=== PATIENT | female | born 1985 | race Caucasian/White ===

== ENCOUNTER 2017-06-24 02:06 | Emergency (ER) | payer BC ==
[~2017-06-24] VITALS: Ht 170.2 cm; Wt 131.1 kg
--- NOTE | 2017-06-24 02:09 | ED.ADGEN ---
Adult General Chief Complaint Chief Complaint " For last three days been sick.. a million diarrhea's.. Nausea and Vomiting... Epigastric pain..." HPI HPI Patient is a 31 year old female who presents with above hx and complaints Abd. pain, Nausea and Vomiting and Diarrhea. Pt. Denies bad food, travel, or specific ill contacts other than step son. . Her step son however was well enough to play basket ball game today. Pt. is also exposed to school child at work. No exposure to reptiles or other animals. Pt. did eat turkey dinner at noon. Pt. report too many watery diarrhea's to count. No hx of colitis with her or family members. Pt. denies immunosuppression. Pt. normally follows with Dr. Morton. Review of Systems Review of Systems Constitutional: Subjective fever or chills [] Eyes: Denies change in visual acuity, redness, or eye pain [] HENT: Denies nasal congestion or sore throat [] Respiratory: Denies cough or shortness of breath [] Cardiovascular: No additional information not addressed in HPI [] GI: Generalize abdominal pain, nausea, vomiting, and diarrhea [] : Denies dysuria or hematuria [] Musculoskeletal: Denies back pain or joint pain [] Integument: Denies rash or skin lesions [] Neurologic: Denies headache, focal weakness or sensory changes [] Endocrine: Denies polyuria or polydipsia [] All other systems were reviewed and found to be within normal limits, except as documented in this note. Family History Family History Step son - GI complaints Current Medications Current Medications Current Medications Medications (Trade) Dose Ordered Sig/Cyrus Start Time Stop Time Status Last Admin Dose Admin Famotidine (Pepcid Vial) 20 mg 1X ONCE 06/24/17 03:00 06/24/17 03:01 DC 06/24/17 02:49 20 MG Lactated Ringer's 1,000 ml @ 1,000 mls/hr Q1H 06/24/17 03:00 06/24/17 03:00 DC 06/24/17 02:50 1,000 MLS/HR Morphine Sulfate (Morphine 4mg Syringe) 10 mg PRN Q15MIN PRN 06/24/17 02:30 06/24/17 05:16 DC 06/24/17 04:49 10 MG Ondansetron HCl (Zofran) 8 mg 1X ONCE 06/24/17 05:00 06/24/17 05:01 DC 06/24/17 04:48 8 MG Sodium Chloride 1,000 ml @ 1,000 mls/hr Q1H 06/24/17 03:00 06/24/17 03:59 DC 06/24/17 03:00 1,000 MLS/HR See USP meds Allergies Allergies Allergies Coded Allergies Type Severity Reaction Last Updated Verified No Known Drug Allergies 06/24/17 No Physical Exam Physical Exam Constitutional: Well developed, well nourished, no acute distress, non-toxic appearance. [] HENT: Normocephalic, atraumatic, bilateral external ears normal, , no oral exudates Dry., nose normal. [] Eyes: PERRLA, EOMI, conjunctiva normal, no discharge. [] Neck: Normal range of motion, no tenderness, supple, no stridor. [] Cardiovascular:Heart rate regular rhythm, no murmur [] Lungs & Thorax: Bilateral breath sounds clear to auscultation [] Abdomen: Bowel sounds hyperactive , soft,generalized tenderness, no masses, no pulsatile masses. [] Skin: Warm, dry, no erythema, no rash. [] Back: No tenderness, no CVA tenderness. [] Extremities: No tenderness, no cyanosis, no clubbing, ROM intact, no edema. [] No psoas or heel tap. Neurologic: Alert and oriented X 3, normal motor function, normal sensory function, no focal deficits noted. [] Psychologic: Affect normal, judgement normal, mood normal. [] Current Patient Data Vital Signs Vital Signs Date Time Temp Pulse Resp B/P (MAP) Pulse Ox O2 Delivery O2 Flow Rate FiO2 06/24/17 03:45 58 20 143/83 (103) 96 Room Air 06/24/17 02:19 97.9 Lab Results Laboratory Tests Test 06/24/17 02:19 White Blood Count 9.9 x10^3/uL (4.0-11.0) Red Blood Count 4.43 x10^6/uL (3.50-5.40) Hemoglobin 13.9 g/dL (12.0-15.5) Hematocrit 40.2 % (36.0-47.0) Mean Corpuscular Volume 91 fL (79-100) Mean Corpuscular Hemoglobin 31 pg (25-35) Mean Corpuscular Hemoglobin Concent 35 g/dL (31-37) Red Cell Distribution Width 13.2 % (11.5-14.5) Platelet Count 219 x10^3/uL (140-400) Neutrophils (%) (Auto) 72 % (31-73) Lymphocytes (%) (Auto) 21 % (24-48) L Monocytes (%) (Auto) 6 % (0-9) Eosinophils (%) (Auto) 1 % (0-3) Basophils (%) (Auto) 0 % (0-3) Neutrophils # (Auto) 7.2 x10^3uL (1.8-7.7) Lymphocytes # (Auto) 2.1 x10^3/uL (1.0-4.8) Monocytes # (Auto) 0.6 x10^3/uL (0.0-1.1) Eosinophils # (Auto) 0.1 x10^3/uL (0.0-0.7) Basophils # (Auto) 0.0 x10^3/uL (0.0-0.2) Urine Collection Type Void Urine Color Yellow Urine Clarity Cloudy Urine pH 5.5 Urine Specific [place] >=1.030 Urine Protein 30 mg/dl (NEG-TRACE) Urine Glucose (UA) Neg mg/dL (NEG) Urine Ketones (Stick) Neg mg/dL (NEG) Urine Blood Mod (NEG) Urine Nitrite Neg (NEG) Urine Bilirubin Neg (NEG) Urine Urobilinogen Dipstick 0.2 mg/dL (0.2 mg/dL) Urine Leukocyte Esterase Neg (NEG) Urine RBC >40 /HPF (0-2) Urine WBC Occ /HPF (0-4) Urine Squamous Epithelial Cells Few /LPF Urine Bacteria Few /HPF (0-FEW) Urine Mucus Mod /LPF Sodium Level 141 mmol/L (136-145) Potassium Level 3.5 mmol/L (3.5-5.1) Chloride Level 106 mmol/L (98-107) Carbon Dioxide Level 23 mmol/L (21-32) Anion Gap 12 (6-14) Blood Urea Nitrogen 15 mg/dL (7-20) Creatinine 0.7 mg/dL (0.6-1.0) Estimated GFR (Cockcroft-Gault) 98.9 BUN/Creatinine Ratio 21 (6-20) H Glucose Level 103 mg/dL (70-99) H Calcium Level 9.0 mg/dL (8.5-10.1) Total Bilirubin 0.3 mg/dL (0.2-1.0) Aspartate Amino Transferase (AST) 23 U/L (15-37) Alanine Aminotransferase (ALT) 31 U/L (14-59) Alkaline Phosphatase 55 U/L (46-116) Total Protein 7.8 g/dL (6.4-8.2) Albumin 3.6 g/dL (3.4-5.0) Albumin/Globulin Ratio 0.9 (1.0-1.7) L Lipase 147 U/L (73-393) Serum Test, Qualitative Negative (NEG) EKG EKG [] Radiology/Procedures Radiology/Procedures [] Course & Med Decision Making Course & Med Decision Making Pertinent Labs and Imaging studies reviewed. (See chart for details). Clear fluids diet only. Follow up stool cultures. No milk products or solids x 48 hrs. must allow bowel rest. Tylenol and Ibuprofen for pain and fever. Zofran for nausea and vomiting. [] Final Impression Final Impression 1. Gastroenteritis[] 2. Dehydration Problems: Dragon Disclaimer Dragon Disclaimer This electronic medical record was generated, in whole or in part, using a voice recognition dictation system. KEVIN SUBRAMANIAN MD Jun 24, 2017 02:09
[2017-06-24] MEDS ORDERED: ONDANSETRON PF 4 MG/2 ML VIAL. ONE ×2 (02:35→02:44)
[2017-06-24] MEDS ORDERED: FAMOTIDINE 20 MG/2 ML VIAL ONE (02:45)
[2017-06-24] MEDS ORDERED: MORPHINE SULFATE 5 MG/ML SYRINGE. ONE (02:45)
[2017-06-24] MEDS ORDERED: ONDA8TAB12 PO (02:47)
[2017-06-24] MEDS ORDERED: FAMOTIDINE 20 MG/2 ML VIAL IVP ONE (03:00)
[2017-06-24] MEDS ORDERED: IV RINGERS SOLUTION,LACTATED 1,000 ML IV SCH (03:00)
[2017-06-24] MEDS ORDERED: IV NORMAL SALINE 1,000ML 1,000 ML IV SCH (03:00)
[2017-06-24] MEDS ORDERED: ONDANSETRON PF 4 MG/2 ML VIAL. IV ONE ×2 (03:00→05:00)
[2017-06-24 03:03] LABS: BASO % 0 % (0-3); EOS # 0.1 x10^3/uL (0.0-0.7); EOS % 1 % (0-3); HEMATOCRIT 40.2 % (36.0-47.0); HEMOGLOBIN 13.9 g/dL (12.0-15.5); LYMPH # 2.1 x10^3/uL (1.0-4.8); LYMPH % 21 % (24-48); MEAN CORPUSCULAR HEMOGLOBIN 31 pg (25-35); MEAN CORPUSCULAR HGB CONC 35 g/dL (31-37); MEAN CORPUSCULAR VOLUME 91 fL (79-100); MONO # 0.6 x10^3/uL (0.0-1.1); MONO % 6 % (0-9); NEUT # 7.2 x10^3uL (1.8-7.7); NEUT % 72 % (31-73); PLATELET COUNT 219 x10^3/uL (140-400); RED BLOOD COUNT 4.43 x10^6/uL (3.50-5.40); RED CELL DISTRIBUTION WIDTH 13.2 % (11.5-14.5); WHITE BLOOD COUNT 9.9 x10^3/uL (4.0-11.0)
[2017-06-24 03:09] LABS: ALBUMIN 3.6 g/dL (3.4-5.0); ALBUMIN/GLOBULIN RATIO 0.9 (1.0-1.7); CREATININE 0.7 mg/dL (0.6-1.0); GFR 98.9; POTASSIUM 3.5 mmol/L (3.5-5.1); TOTAL BILIRUBIN 0.3 mg/dL (0.2-1.0); TOTAL PROTEIN 7.8 g/dL (6.4-8.2)
[2017-06-24 03:24] LABS: BILIRUBIN,URINE NEG (NEG); CLARITY,URINE CLOUDY; COLOR,URINE YELLOW; GLUCOSE,URINE NEG (NEG); NITRITE,URINE NEG (NEG); UROBILINOGEN,URINE 0.2 mg/dL (0.2 mg/dL)
[2017-06-24 03:25] LABS: BACTERIA,URINE FEW /HPF (0-FEW); PREG TEST PT QUAL NEGATIVE (NEG); RBC,URINE >40 /HPF (0-2); SQUAMOUS EPITHELIAL CELL,UR FEW /LPF; WBC,URINE OCC /HPF (0-4)
[2017-06-24] MEDS: MORPHINE SULFATE 4 MG/ML DISP.SYRIN. SQ PRN ×2 (03:35→04:49)
[2017-06-24 03:45] VITALS: BP 143/83
== END 2017-06-24 05:00 | disposition home or self-care (01) ==
LOC: ER 02:06
DX: K52.9 Noninfective gastroenteritis and colitis, unspecified (principal); E86.0 Dehydration
CPT/HCPCS: 36415; 80053; 81001; 81025; 83690; 84703; 85025; 87324; 96361; 96372; 96374; 96375; 96376; 99285; J2270; J2405; J7120; S0028; J7030

== ENCOUNTER 2019-10-23 16:17 | Emergency (ER) | payer BC, OTHER ==
[~2019-10-23] VITALS: Ht 172.7 cm; Wt 125.0 kg
[~2019-10-23 16:17] MED LIST: ONDA8TAB12 PO
[2019-10-23 16:48] VITALS: BP 131/84
[2019-10-23] MEDS ORDERED: FAMOTIDINE 20 MG/2 ML VIAL IVP ONE (17:00)
[2019-10-23] MEDS ORDERED: ONDANSETRON PF 4 MG/2 ML VIAL. IVP ONE (17:00)
[2019-10-23] MEDS ORDERED: LIDO:MAALOX 1:1 20 ML SINGLE DOSE. PO ONE (17:00)
[2019-10-23 17:10] LABS: CALCIUM 9.6 mg/dL (8.5-10.1); CREATININE 0.7 mg/dL (0.6-1.0); POTASSIUM 3.6 mmol/L (3.5-5.1)
[2019-10-23 17:16] LABS: ALBUMIN 3.7 g/dL (3.4-5.0); ALBUMIN/GLOBULIN RATIO 0.9 (1.0-1.7); TOTAL BILIRUBIN 0.4 mg/dL (0.2-1.0); TOTAL PROTEIN 7.6 g/dL (6.4-8.2)
[2019-10-23 17:20] LABS: BASO % 0 % (0-3); EOS # 0.2 x10^3/uL (0.0-0.7); EOS % 1 % (0-3); HEMATOCRIT 40.7 % (36.0-47.0); HEMOGLOBIN 13.6 g/dL (12.0-15.5); LYMPH # 2.1 x10^3/uL (1.0-4.8); LYMPH % 18 % (24-48); MEAN CORPUSCULAR HEMOGLOBIN 31 pg (25-35); MEAN CORPUSCULAR HGB CONC 34 g/dL (31-37); MEAN CORPUSCULAR VOLUME 92 fL (79-100); MONO # 0.6 x10^3/uL (0.0-1.1); MONO % 5 % (0-9); NEUT # 8.8 x10^3uL (1.8-7.7); NEUT % 75 % (31-73); PLATELET COUNT 239 x10^3/uL (140-400); RED BLOOD COUNT 4.41 x10^6/uL (3.50-5.40); RED CELL DISTRIBUTION WIDTH 13.6 % (11.5-14.5); WHITE BLOOD COUNT 11.7 x10^3/uL (4.0-11.0)
[2019-10-23] MEDS ORDERED: KETOROLAC 15 MG/ML VIAL. ONE (17:24)
[2019-10-23] MEDS ORDERED: IV NORMAL SALINE 1,000ML 1,000 ML IV ONE (17:30)
[2019-10-23] MEDS ORDERED: HYOS0.1265 SL (17:41)
[2019-10-23] MEDS ORDERED: FAMO-63 PO (17:41)
--- NOTE | 2019-10-23 17:41 | PHYS DOC ---
Past History Past Medical History: Hypertension, Migraines Past Surgical History: Smoking: Non-smoker Alcohol Use: Occasionally Drug Use: None Adult General Chief Complaint Chief Complaint: ABDOMINAL PAIN HPI HPI 34-year-old female presents with epigastric abdominal pain which started at 1400 today. Denies associated nausea or vomiting. Denies fever or chills. Patient does have history of recent for which she saw her doctor today. Patient does have a very small area of dehiscence without signs of redness or discharge. Denies diarrhea. Denies known sick contacts. Review of Systems Review of Systems Constitutional: Denies fever or chills Eyes: Denies redness or eye pain HENT: Denies nasal congestion or sore throat Respiratory: Denies cough or shortness of breath Cardiovascular: Denies chest pain or palpitations GI: Reports epigastric abdominal pain; denies nausea or vomiting : Denies dysuria or hematuria Musculoskeletal: Denies back pain or joint pain Integument: Denies rash or skin lesions Neurologic: Denies headache, focal weakness or sensory changes Complete systems were reviewed and found to be within normal limits, except as documented in this note. Current Medications Current Medications Current Medications Medications (Trade) Dose Ordered Sig/Cyrus Start Time Stop Time Status Last Admin Dose Admin Famotidine (Pepcid Vial) 20 mg 1X ONCE 10/23/19 17:00 10/23/19 17:01 DC 10/23/19 16:57 20 MG Ketorolac Tromethamine (Toradol 15mg Vial) 15 mg 1X ONCE 10/23/19 18:00 10/23/19 18:01 10/23/19 17:26 15 MG Multi-Ingredient Mouthwash/Gargle (Gi Cocktail) 20 ml 1X ONCE 10/23/19 17:00 10/23/19 17:01 DC 10/23/19 16:58 20 ML Ondansetron HCl (Zofran) 4 mg 1X ONCE 10/23/19 17:00 10/23/19 17:01 DC 10/23/19 16:58 4 MG Sodium Chloride 1,000 ml @ 1,000 mls/hr 1X ONCE 10/23/19 17:30 10/23/19 18:29 10/23/19 17:19 1,000 MLS/HR Allergies Allergies Allergies Coded Allergies Type Severity Reaction Last Updated Verified No Known Drug Allergies 06/24/17 No Physical Exam Physical Exam Constitutional: Well developed, well nourished, no acute distress, non-toxic appearance HENT: Normocephalic, atraumatic, oropharynx moist Eyes: Conjunctiva normal, no discharge Neck: Normal range of motion, no tenderness, supple Cardiovascular: Heart rate normal, regular rhythm Lungs & Thorax: Bilateral breath sounds clear to auscultation, no wheezing Abdomen: Soft, mild epigastric tenderness, no guarding/rebound tenderness/distention, small incision site noted, small dressed area to right lateral aspect without surrounding erythema. Skin: Warm, dry, no erythema, no rash Extremities: No tenderness, ROM intact, no edema Neurologic: Alert and oriented X 3, no focal deficits noted Psychologic: Affect normal, judgment normal Current Patient Data Vital Signs Vital Signs Date Time Temp Pulse Resp B/P (MAP) Pulse Ox O2 Delivery O2 Flow Rate FiO2 10/23/19 16:48 97.9 63 20 131/84 (100) 100 Room Air Lab Results Laboratory Tests Test 10/23/19 16:48 White Blood Count 11.7 x10^3/uL (4.0-11.0) H Red Blood Count 4.41 x10^6/uL (3.50-5.40) Hemoglobin 13.6 g/dL (12.0-15.5) Hematocrit 40.7 % (36.0-47.0) Mean Corpuscular Volume 92 fL (79-100) Mean Corpuscular Hemoglobin 31 pg (25-35) Mean Corpuscular Hemoglobin Concent 34 g/dL (31-37) Red Cell Distribution Width 13.6 % (11.5-14.5) Platelet Count 239 x10^3/uL (140-400) Neutrophils (%) (Auto) 75 % (31-73) H Lymphocytes (%) (Auto) 18 % (24-48) L Monocytes (%) (Auto) 5 % (0-9) Eosinophils (%) (Auto) 1 % (0-3) Basophils (%) (Auto) 0 % (0-3) Neutrophils # (Auto) 8.8 x10^3uL (1.8-7.7) H Lymphocytes # (Auto) 2.1 x10^3/uL (1.0-4.8) Monocytes # (Auto) 0.6 x10^3/uL (0.0-1.1) Eosinophils # (Auto) 0.2 x10^3/uL (0.0-0.7) Basophils # (Auto) 0.0 x10^3/uL (0.0-0.2) Sodium Level 142 mmol/L (136-145) Potassium Level 3.6 mmol/L (3.5-5.1) Chloride Level 105 mmol/L (98-107) Carbon Dioxide Level 27 mmol/L (21-32) Anion Gap 10 (6-14) Blood Urea Nitrogen 11 mg/dL (7-20) Creatinine 0.7 mg/dL (0.6-1.0) Estimated GFR (Cockcroft-Gault) 97.0 BUN/Creatinine Ratio 16 (6-20) Glucose Level 93 mg/dL (70-99) Calcium Level 9.6 mg/dL (8.5-10.1) Magnesium Level 2.0 mg/dL (1.8-2.4) Total Bilirubin 0.4 mg/dL (0.2-1.0) Aspartate Amino Transferase (AST) 86 U/L (15-37) H Alanine Aminotransferase (ALT) 77 U/L (14-59) H Alkaline Phosphatase 93 U/L (46-116) Total Protein 7.6 g/dL (6.4-8.2) Albumin 3.7 g/dL (3.4-5.0) Albumin/Globulin Ratio 0.9 (1.0-1.7) L Lipase 124 U/L (73-393) EKG EKG [] Radiology/Procedures Radiology/Procedures [] Course & Med Decision Making Course & Med Decision Making Pertinent Lab studies reviewed. (See chart for details) Patient presents with epigastric abdominal pain. Abdomen non-peritoneal. Labs obtained and posted to chart. GI cocktail, Pepcid, ketorolac, and IV fluid hydration provided. Patient stable for discharge with outpatient follow-up with PCP/GI. GI referral provided. Discussed findings and plan with patient, who acknowledges understanding and agreement. Dragon Disclaimer Dragon Disclaimer This electronic medical record was generated, in whole or in part, using a voice recognition dictation system. Departure Departure: Impression: Primary Impression: Epigastric abdominal pain Disposition: 01 HOME, SELF-CARE Condition: STABLE Referrals: KIERA AMBROSIO MD (PCP) CHRIS SALAZAR MD Patient Instructions: Abdominal Pain (Nonspecific), Gastritis, Adult, [id number] Scripts Hyoscyamine Sulfate (LEVSIN-SL) 0.125 Mg Tab.subl 0.125 MG SL Q4-6HRS PRN for PAIN, #14 TAB Prov: HECTOR LAWRENCE DO 10/23/19 Famotidine (PEPCID) 20 Mg Tablet 1 TAB PO BID for Gastritis for 5 Days, #10 TAB Prov: HECTOR LAWRENCE DO 10/23/19 HECTOR LAWRENCE DO Oct 23, 2019 17:41
[2019-10-23] MEDS ORDERED: KETOROLAC 15 MG/ML VIAL. IVP ONE (18:00)
== END 2019-10-23 18:00 | disposition home or self-care (01) ==
LOC: ER 16:17
DX: R10.13 Epigastric pain (principal); I10 Essential (primary) hypertension; G43.909 Migraine, unspecified, not intractable, without status migrainosus; Z98.890 Other specified postprocedural states
CPT/HCPCS: 36415; 80053; 83690; 83735; 85025; 96374; 96375; 99284; J1885; J2405; J3490; J7030

== ENCOUNTER → 2019-11-28 | Outpatient (CLI) | payer BC, OTHER ==
[~2019-11-28] MED LIST changes: +FAMO-63 PO; +HYOS0.1265 SL; +ONDA4TAB7 PO; +TRAM50TA PO
--- NOTE | 2019-11-28 09:32 | RAD ---
Examination: ABDOMEN COMPLETE History: Right upper quadrant pain Comparison/Correlation: None Findings: Liver is borderline enlarged. Mild fatty infiltration of liver noted. Common bile duct diameter is normal. Small calculi and sludge are present within the gallbladder. Borderline gallbladder wall thickness. No pericholecystic fluid. Portal venous flow is unremarkable. Right kidney measures 13.2 cm x 6.3 cm x 4.6 cm. Left kidney measures 13 cm x 6 cm x 6 cm. No hydronephrosis. Renal contours and echotexture are normal. Spleen is unremarkable. Proximal pancreas is unremarkable. Distal pancreas is obscured by bowel gas. No upper abdominal ascites seen. Visualized abdominal aorta and inferior vena cava are unremarkable. Impression: Cholelithiasis. No findings definitive for acute inflammation. No biliary dilatation. Electronically signed by: Agustín Gong MD (11/28/2019 9:29 AM) [id number]
== END | disposition home or self-care (01) ==
LOC: US 08:50
PROVIDERS: ATTEND Obstetrics & Gynecology
DX: K76.0 Fatty (change of) liver, not elsewhere classified (principal); K80.20 Calculus of gallbladder without cholecystitis without obstruction
CPT/HCPCS: 76700

== ENCOUNTER 2019-11-30 19:10 | Emergency (ER) | payer BC, OTHER ==
[~2019-11-30] VITALS: Ht 172.7 cm; Wt 132.0 kg
[~2019-11-30 19:10] MED LIST changes: -ONDA4TAB7 PO; -TRAM50TA PO
[2019-11-30] MEDS ORDERED: ONDANSETRON PF 4 MG/2 ML VIAL. IVP ONE (19:30)
[2019-11-30] MEDS ORDERED: IV NORMAL SALINE 1,000ML 1,000 ML IV ONE (19:30)
[2019-11-30 20:04] LABS: BASO # 0.1 x10^3/uL (0.0-0.2); BASO % 0 % (0-3); EOS # 0.1 x10^3/uL (0.0-0.7); EOS % 1 % (0-3); HEMATOCRIT 40.3 % (36.0-47.0); HEMOGLOBIN 13.4 g/dL (12.0-15.5); LYMPH # 1.5 x10^3/uL (1.0-4.8); LYMPH % 12 % (24-48); MEAN CORPUSCULAR HEMOGLOBIN 31 pg (25-35); MEAN CORPUSCULAR HGB CONC 33 g/dL (31-37); MEAN CORPUSCULAR VOLUME 92 fL (79-100); MONO # 0.7 x10^3/uL (0.0-1.1); MONO % 6 % (0-9); NEUT # 10.3 x10^3uL (1.8-7.7); NEUT % 81 % (31-73); PLATELET COUNT 212 x10^3/uL (140-400); RED BLOOD COUNT 4.37 x10^6/uL (3.50-5.40); RED CELL DISTRIBUTION WIDTH 14.3 % (11.5-14.5); WHITE BLOOD COUNT 12.6 x10^3/uL (4.0-11.0)
[2019-11-30 20:16] LABS: CALCIUM 9.1 mg/dL (8.5-10.1); CREATININE 0.7 mg/dL (0.6-1.0); POTASSIUM 4.1 mmol/L (3.5-5.1)
[2019-11-30 20:21] LABS: ALBUMIN 3.5 g/dL (3.4-5.0); ALBUMIN/GLOBULIN RATIO 0.9 (1.0-1.7); TOTAL BILIRUBIN 0.5 mg/dL (0.2-1.0); TOTAL PROTEIN 7.3 g/dL (6.4-8.2)
[2019-11-30 20:51] LABS: CLARITY,URINE CLEAR; COLOR,URINE YELLOW; GLUCOSE,URINE NEG (NEG)
[2019-11-30 20:52] LABS: NITRITE,URINE NEG (NEG); UROBILINOGEN,URINE 0.2 mg/dL (0.2 mg/dL)
--- NOTE | 2019-11-30 20:52 | PHYS DOC ---
Past History Past Medical History: Hypertension, Migraines Past Surgical History: Smoking: Non-smoker Alcohol Use: Occasionally Drug Use: None General Adult EDM: Chief Complaint: ABDOMINAL PAIN HPI: HPI: Patient is a 34 year old female who presents for evaluation of epigastric and right upper quadrant abdominal pain. Symptoms are moderate and started again about 2 PM today. Patient has had chills as well as nausea and vomiting. Patient had a recent sonogram to evaluate for possible cholecystitis but she does not know the results. She does not yet have a surgeon assigned to her. Patient denies any black, bloody or tarry stools. Patient is a mild to moderate distress on arrival. Patient states she had a cinnamon roll but no greasy food today Review of Systems: Review of Systems: Constitutional: Denies fever or chills Eyes: Denies change in visual acuity HENT: Denies nasal congestion or sore throat Respiratory: Denies cough or shortness of breath Cardiovascular: Denies chest pain or edema GI: upper abdominal pain, nausea, vomiting, not bloody stools or diarrhea : Denies dysuria Musculoskeletal: Denies back pain or joint pain Integument: Denies rash Neurologic: Denies headache, focal weakness or sensory changes Endocrine: Denies polyuria or polydipsia Lymphatic: Denies swollen glands Psychiatric: Denies depression or anxiety Heart Score: Risk Factors: Risk Factors: DM, Current or recent (<one month) smoker, HTN, HLP, family history of CAD, obesity. Risk Scores: Score 0 - 3: 2.5% MACE over next 6 weeks - Discharge Home Score 4 - 6: 20.3% MACE over next 6 weeks - Admit for Clinical Observation Score 7 - 10: 72.7% MACE over next 6 weeks - Early Invasive Strategies Current Medications: Current Meds: Current Medications Medications (Trade) Dose Ordered Sig/Cyrus Start Time Stop Time Status Last Admin Dose Admin Fentanyl Citrate (Fentanyl 2ml Vial) 50 mcg 1X ONCE 11/30/19 20:15 11/30/19 20:16 DC 11/30/19 20:18 50 MCG Ondansetron HCl (Zofran) 4 mg 1X ONCE 11/30/19 19:30 11/30/19 19:31 DC 11/30/19 19:50 4 MG Sodium Chloride 1,000 ml @ 1,000 mls/hr 1X ONCE 11/30/19 19:30 11/30/19 20:29 DC 11/30/19 19:49 1,000 MLS/HR Allergies: Allergies: Allergies Coded Allergies Type Severity Reaction Last Updated Verified No Known Drug Allergies 06/24/17 No Physical Exam: PE: Constitutional: Well developed, well nourished, moderate distress, non-toxic appearance. [] HENT: Normocephalic, atraumatic, bilateral external ears normal, oropharynx moist, no oral exudates, nose normal. [] Eyes: PERRL, EOMI, conjunctiva normal, no discharge. [] Neck: Normal range of motion, no tenderness, supple, no stridor. [] Cardiovascular:Heart rate regular rhythm, no murmur [] Lungs & Thorax: Bilateral breath sounds clear to auscultation [] Abdomen: soft, obese, moderate epigastric tenderness but no rebound, no masses, no pulsatile masses. [] Skin: Warm, dry, no erythema, no rash. [] Back: No tenderness, no CVA tenderness. [] Extremities: No tenderness, no cyanosis, no clubbing, ROM intact, no edema. [] Neurologic: Alert and oriented X 3, normal motor function, normal sensory function, no focal deficits noted. [] Psychologic: Affect normal, judgement normal, mood normal. [] Current Patient Data: Labs: Laboratory Tests Test 11/30/19 19:45 11/30/19 20:25 11/30/19 20:33 White Blood Count 12.6 x10^3/uL Red Blood Count 4.37 x10^6/uL Hemoglobin 13.4 g/dL Hematocrit 40.3 % Mean Corpuscular Volume 92 fL Mean Corpuscular Hemoglobin 31 pg Mean Corpuscular Hemoglobin Concent 33 g/dL Red Cell Distribution Width 14.3 % Platelet Count 212 x10^3/uL Neutrophils (%) (Auto) 81 % Lymphocytes (%) (Auto) 12 % Monocytes (%) (Auto) 6 % Eosinophils (%) (Auto) 1 % Basophils (%) (Auto) 0 % Neutrophils # (Auto) 10.3 x10^3uL Lymphocytes # (Auto) 1.5 x10^3/uL Monocytes # (Auto) 0.7 x10^3/uL Eosinophils # (Auto) 0.1 x10^3/uL Basophils # (Auto) 0.1 x10^3/uL Sodium Level 142 mmol/L Potassium Level 4.1 mmol/L Chloride Level 106 mmol/L Carbon Dioxide Level 26 mmol/L Anion Gap 10 Blood Urea Nitrogen 13 mg/dL Creatinine 0.7 mg/dL Estimated GFR (Cockcroft-Gault) 97.0 BUN/Creatinine Ratio 19 Glucose Level 106 mg/dL Calcium Level 9.1 mg/dL Total Bilirubin 0.5 mg/dL Aspartate Amino Transf (AST/SGOT) 132 U/L Alanine Aminotransferase (ALT/SGPT) 100 U/L Alkaline Phosphatase 91 U/L Total Protein 7.3 g/dL Albumin 3.5 g/dL Albumin/Globulin Ratio 0.9 Lipase 118 U/L Urine Collection Type Unknown Urine Color Yellow Urine Clarity Clear Urine pH 5.0 Urine Specific [place] >=1.030 Urine Protein Neg Urine Glucose (UA) Neg mg/dL Urine Ketones (Stick) Neg mg/dL Urine Blood Large Urine Nitrite Neg Urine Bilirubin Neg Urine Urobilinogen Dipstick 0.2 mg/dL Urine Leukocyte Esterase Neg Urine RBC 0 /HPF Urine WBC 0 /HPF Urine Squamous Epithelial Cells Few /LPF Urine Bacteria 0 /HPF Urine Mucus Slight /LPF Urine Test Negative Bedside Urine HCG, Qualitative hcg negative Current Medications Medications (Trade) Dose Ordered Sig/Cyrus Route PRN Reason Start Time Stop Time Status Last Admin Dose Admin Sodium Chloride 1,000 ml @ 1,000 mls/hr 1X ONCE IV 11/30/19 19:30 11/30/19 20:29 DC 11/30/19 19:49 Ondansetron HCl (Zofran) 4 mg 1X ONCE IVP 11/30/19 19:30 11/30/19 19:31 DC 11/30/19 19:50 Fentanyl Citrate (Fentanyl 2ml Vial) 50 mcg 1X ONCE IVP 11/30/19 20:15 11/30/19 20:16 DC 11/30/19 20:18 Fentanyl Citrate (Fentanyl 2ml Vial) 50 mcg 1X ONCE IVP 11/30/19 21:00 11/30/19 21:01 DC 11/30/19 21:07 Iohexol (Omnipaque 240 Mg/ml) 30 ml 1X ONCE PO 11/30/19 21:15 11/30/19 21:16 DC Iohexol (Omnipaque 300 Mg/ml) 75 ml 1X ONCE IV 11/30/19 21:15 11/30/19 21:16 DC Info (Do NOT chart on this entry -- for MONITORING) 1 each PRN DAILY PRN MC SEE COMMENTS 11/30/19 21:15 12/02/19 21:14 Barium Sulfate (Readi-Cat 2) 900 ml 1X ONCE PO 11/30/19 21:45 11/30/19 21:46 UNV Laboratory Tests Test 11/30/19 19:45 11/30/19 20:33 White Blood Count 12.6 x10^3/uL (4.0-11.0) H Red Blood Count 4.37 x10^6/uL (3.50-5.40) Hemoglobin 13.4 g/dL (12.0-15.5) Hematocrit 40.3 % (36.0-47.0) Mean Corpuscular Volume 92 fL (79-100) Mean Corpuscular Hemoglobin 31 pg (25-35) Mean Corpuscular Hemoglobin Concent 33 g/dL (31-37) Red Cell Distribution Width 14.3 % (11.5-14.5) Platelet Count 212 x10^3/uL (140-400) Neutrophils (%) (Auto) 81 % (31-73) H Lymphocytes (%) (Auto) 12 % (24-48) L Monocytes (%) (Auto) 6 % (0-9) Eosinophils (%) (Auto) 1 % (0-3) Basophils (%) (Auto) 0 % (0-3) Neutrophils # (Auto) 10.3 x10^3uL (1.8-7.7) H Lymphocytes # (Auto) 1.5 x10^3/uL (1.0-4.8) Monocytes # (Auto) 0.7 x10^3/uL (0.0-1.1) Eosinophils # (Auto) 0.1 x10^3/uL (0.0-0.7) Basophils # (Auto) 0.1 x10^3/uL (0.0-0.2) Sodium Level 142 mmol/L (136-145) Potassium Level 4.1 mmol/L (3.5-5.1) Chloride Level 106 mmol/L (98-107) Carbon Dioxide Level 26 mmol/L (21-32) Anion Gap 10 (6-14) Blood Urea Nitrogen 13 mg/dL (7-20) Creatinine 0.7 mg/dL (0.6-1.0) Estimated GFR (Cockcroft-Gault) 97.0 BUN/Creatinine Ratio 19 (6-20) Glucose Level 106 mg/dL (70-99) H Calcium Level 9.1 mg/dL (8.5-10.1) Total Bilirubin 0.5 mg/dL (0.2-1.0) Aspartate Amino Transferase (AST) 132 U/L (15-37) H Alanine Aminotransferase (ALT) 100 U/L (14-59) H Alkaline Phosphatase 91 U/L (46-116) Total Protein 7.3 g/dL (6.4-8.2) Albumin 3.5 g/dL (3.4-5.0) Albumin/Globulin Ratio 0.9 (1.0-1.7) L Lipase 118 U/L (73-393) POC Urine HCG, Qualitative hcg negative (Negative) Vital Signs: Vital Signs Date Time Temp Pulse Resp B/P (MAP) Pulse Ox O2 Delivery O2 Flow Rate FiO2 11/30/19 20:18 18 97 Room Air 11/30/19 19:34 97.9 64 141/86 (104) EKG: EKG: [] Radiology/Procedures: Radiology/Procedures: [address] [address] IMAGING REPORT Signed PATIENT: DAVID KELLY LACCOUNT: [id number] : 1985 LOCATION: US AGE: 34 SEX: F EXAM STATUS: REG CLI ORD. PHYSICIAN: DANA GOMEZ REASON: RUQ PAIN PROCEDURE: ABDOMEN COMPLETE Examination: ABDOMEN COMPLETE History: Right upper quadrant pain Comparison/Correlation: None Findings: Liver is borderline enlarged. Mild fatty infiltration of liver noted. Common bile duct diameter is normal. Small calculi and sludge are present within the gallbladder. Borderline gallbladder wall thickness. No pericholecystic fluid. Portal venous flow is unremarkable. Right kidney measures 13.2 cm x 6.3 cm x 4.6 cm. Left kidney measures 13 cm x 6 cm x 6 cm. No hydronephrosis. Renal contours and echotexture are normal. Spleen is unremarkable. Proximal pancreas is unremarkable. Distal pancreas is obscured by bowel gas. No upper abdominal ascites seen. Visualized abdominal aorta and inferior vena cava are unremarkable. Impression: Cholelithiasis. No findings definitive for acute inflammation. No biliary dilatation. Electronically signed by: Agustín Ruiz MD (11/28/2019 9:29 AM) [id number] DICTATED AND SIGNED BY: AGUSTÍN RUIZ MD DATE: 11/28/19928 CC: DANA GOMEZ; KIERA AMBROSIO MD ~ [] Course & Med Decision Making: Course & Med Decision Making Pertinent Labs and Imaging studies reviewed. (See chart for details) 2049 CT scan abdomen and pelvis with oral and IV contrast ordered. Patient did have a slight leukocytosis and she did not have a significant cholecystitis from 3 days ago. Patient being evaluated for possible acute surgical abdomen, obstruction, colitis versus other reason for recurrent moderate abdominal pain. Prior sonogram showed cholelithiasis but no cholecystitis and no duct dilation [] 0045 stable, feels better this time. CT results 0.2 a likely problem with her gallbladder. Close outpatient follow-up recommended. Patient aware she may need a gallbladder function study. She will contact her family doctor and see about referral right away to a general surgeon. Patient does not have a surgi juanjose abdomen today but may well need her gallbladder removed as an outpatient soon [place] Disclaimer: [place] Disclaimer: This electronic medical record was generated, in whole or in part, using a voice recognition dictation system. Departure Departure: Impression: Primary Impression: Upper abdominal pain Additional Impression: Cholelithiasis Disposition: HOME, SELF-CARE Condition: STABLE Referrals: KIERA AMBROSIO MD (PCP) Patient Instructions: Abdominal Pain, Cholecystitis, Nausea and Vomiting Additional Instructions: [place] diet, no spicy foods, do not eat late at night, take medication as directed, return if worse, take [id number] Pepcid or equivalent for the next 7 to 10 days Scripts Tramadol Hcl (TRAMADOL HCL) 50 Mg Tablet 50 MG PO PRN Q6HRS PRN for PAIN, #10 TAB Prov: ROSAURA DELATORRE DO 12/01/19 Ondansetron Hcl (ZOFRAN) 4 Mg Tablet 1 TAB PO PRN Q6HRS PRN for NAUSEA, #6 TAB Prov: ROSAURA DELATORRE DO 12/01/19 ROSAURA DELATORRE DO November 30, 2019 20:52
[2019-11-30 20:56] LABS: BACTERIA,URINE 0 /HPF (0-FEW); RBC,URINE 0 /HPF (0-2); SQUAMOUS EPITHELIAL CELL,UR FEW /LPF; WBC,URINE 0 /HPF (0-4)
[2019-11-30 20:58] LABS: U PREG PATIENT NEGATIVE (NEG)
[2019-11-30] MEDS ORDERED: IOHEXOL 300 MG/ML 75 ML VIAL. IV ONE (21:15)
[2019-11-30] MEDS ORDERED: IOHEXOL 240 MG/ML 50ML VIAL. PO ONE (21:15)
[2019-11-30] MEDS ORDERED: CONTRAST GIVEN MC PRN (21:15)
[2019-11-30 21:16] LABS: BILIRUBIN,URINE NEG (NEG)
[2019-11-30] MEDS ORDERED: BARIUM SULFATE 2.1% 450 ML SUSP PO ONE (22:00)
[2019-11-30] MEDS ORDERED: FAMOTIDINE 20 MG/2 ML VIAL IVP ONE (22:45)
[2019-12-01 00:07] VITALS: BP 166/95
[2019-12-01] MEDS ORDERED: METOCLOPRAMIDE HCL 10 MG/2 ML VIAL. IVP ONE (00:15)
--- NOTE | 2019-12-01 00:19 | RAD ---
PQRS Compliance Statement: One or more of the following individualized dose reduction techniques were utilized for this examination: 1. Automated exposure control 2. Adjustment of the mA and/or kV according to patient size 3. Use of iterative reconstruction technique CT ABD PEL W/ORAL CONTRST ONLY Clinical Indication: Right Upper abdominal pain and nausea. Comparison: Complete abdominal ultrasound 11/28/2019. Technique: Helical CT imaging of the abdomen and pelvis is performed without IV contrast. Oral contrast is administered. Findings: Evaluation of solid organs is limited without IV contrast, decreasing sensitivity for detection of pathology. Mild atelectasis in the bilateral lower lobes. No significant consolidation. Cardiac size normal. There is mild periportal edema. Liver is homogeneous. The spleen, pancreas, adrenal glands, abdominal aorta, and kidneys are normal. Cholelithiasis noted on recent ultrasound is not appreciated by CT. Cannot exclude mild wall thickening of the gallbladder. No pericholecystic induration is seen. There is admixing of oral contrast and fluid in the stomach which is mildly distended. No gastric wall thickening is seen. No dilated small bowel. The appendix is normal. No colon wall thickening. Subcentimeter mesenteric lymph nodes. No adenopathy. No abdominal free fluid. Urinary bladder is normal. Uterus and ovaries unremarkable. No pelvic free fluid. Bones unremarkable. IMPRESSION: 1. Cholelithiasis was noted on recent ultrasound. On CT cannot exclude mild wall thickening of the gallbladder although there is no surrounding inflammation. If there is clinical suspicion for cholecystitis repeat ultrasound may be useful. 2. Mild periportal edema. Considerations include recent IV hydration versus hepatic inflammation. Electronically signed by: Mario Villavicencio MD (12/01/2019 12:16 AM) [id number]
[2019-12-01] MEDS ORDERED: KETOROLAC 30 MG/ML VIAL. ONE (00:30)
[2019-12-01] MEDS ORDERED: KETOROLAC 15 MG/ML VIAL. IVP ONE (00:30)
[2019-12-01] MEDS ORDERED: TRAM50TA PO (00:52)
[2019-12-01] MEDS ORDERED: ONDA4TAB7 PO (00:52)
== END 2019-12-01 00:59 | disposition home or self-care (01) ==
LOC: ER 19:10
DX: K80.20 Calculus of gallbladder without cholecystitis without obstruction (principal); R11.2 Nausea with vomiting, unspecified; I10 Essential (primary) hypertension; G43.909 Migraine, unspecified, not intractable, without status migrainosus; Z98.890 Other specified postprocedural states
CPT/HCPCS: 36415; 74176; 80053; 81001; 81025; 83690; 85025; 96361; 96374; 96375; 96376; 99285; J1885; J2405; J2765; J3010; J3490; J7030